=== PATIENT | male | born 1955 | race Caucasian/White ===

== ENCOUNTER → 2017-02-04 | Day surgery (SDC) | payer MEDICARE, OTHER ==
[2017-02-03 16:05] VITALS: BMI 33.0
[~2017-02-04] MED LIST: Lidocaine 1% PF 5 ML VIAL ONE; PHENYLEPHRINE-NS 100 MCG/ML 10 ML SYRINGE ONE
--- NOTE | 2017-02-04 16:11 | OP ---
PREOPERATIVE DIAGNOSES: 1. History of varices in esophagus prior bleeding. Last endoscopy, 2013. 2. Cirrhosis secondary to nonalcoholic steatohepatitis. 3. Progressive ascites. 4. New development of some pulmonary fibrosis. POSTOPERATIVE DIAGNOSES: 1. No esophageal varices. 2. Retained gastric contents in the stomach consistent with gastroparesis. 3. Ulcers in the esophagus distal with no evidence of varices. 4. The stomach could not be really fully evaluated secondary to the amount of retained food in the s tomach. RECOMMENDATIONS: 1. I will check hemoglobin A1c. 2. Start Protonix 40 mg p.o. daily. 3. Small frequent meals with low residue. 4. Follow up in the clinic on 02/12.
--- NOTE | 2017-02-04 23:12 | OP ---
PREOPERATIVE DIAGNOSES: 1. History of variceal bleeding from esophageal varices in the past. 2. Cirrhosis, decompensated. 3. Ascites. 4. Pulmonary hypertension. POSTOPERATIVE DIAGNOSES: 1. Reflux esophagitis, Emmons grade D with erosions, ulcerations, no active bleeding. 2. No evidence of esophageal varices. 3. Retained gastric contents in the stomach consistent with gastroparesis, the stomach could not be fully evaluated off the duodenum. RECOMMENDATIONS: 1. Liquid diet for 24-48 hours. 2. Small frequent meals. 3. Omeprazole 40 mg p.o. daily. 4. Follow up in clinic on 02/12/2017 is scheduled. ANESTHESIA: TIVA. PROCEDURE IN DETAIL: After the patient was informed of the risks, benefits, possible complications o f endoscopy including perforation, bleeding, aspiration, complications from anesthesia, and informed consent was obtained. The patient brought to endoscopy suite where he was sedated in gradual fashion . Once he was comfortable, a bite block was placed in incisural orifice. The endoscope was advanced through the esophagus, stomach and second and third portion of duodenum and slowly removed. There w as good visualization of mucosa. There was ulceration in the esophagus, 3-4 linear ulcers removed fr om the GE junction through the distal third of esophagus. There was no active bleeding. These were white-based. The GE junction was normal. The stomach was entered and found to be normal what could be seen evident. There was retained gastric contents and food, and a full gastric evaluation cannot be performed. The duodenum likewise could not be evaluated. The scope was removed. The patient isrrael erated the procedure well with no complications.
== END ==
LOC: SDC 12:42
PROVIDERS: ATTEND Internal Medicine Gastroenterology
PROC: 0DJ08ZZ Inspection of Upper Intestinal Tract, Via Natural or Artificial Opening Endoscopic (ICD-10-PCS; principal; 2017-02-04)
DX: K21.0 Gastro-esophageal reflux disease with esophagitis (principal); K74.60 Unspecified cirrhosis of liver; K72.90 Hepatic failure, unspecified without coma; E11.9 Type 2 diabetes mellitus without complications; I10 Essential (primary) hypertension; Z91.040 Latex allergy status; Z88.5 Allergy status to narcotic agent; Z88.8 Allergy status to other drugs, medicaments and biological substances; Z98.890 Other specified postprocedural states; Z87.442 Personal history of urinary calculi; Z87.891 Personal history of nicotine dependence
CPT/HCPCS: 36416; J2001

== ENCOUNTER → 2017-02-06 | Day surgery (SDC) | payer MEDICARE, OTHER ==
[2017-02-05 08:21] VITALS: BMI 33.1
[~2017-02-06] MED LIST changes: +FLU VACC QS2017-18 36 mo. & older 0.5 ML SYRINGE IM ONE; -Lidocaine 1% PF 5 ML VIAL ONE; -PHENYLEPHRINE-NS 100 MCG/ML 10 ML SYRINGE ONE
[2017-02-06 11:49] LABS: ALT (SGPT) 18 U/L (8-55); AST (SGOT) 27 U/L (5-34); Alkaline Phosphatase 130 U/L (40-150); Anion Gap 9 mmol/L (10-20); BUN (Urea Nitrogen) 16 mg/dL (8.4-25.7); Bilirubin, Total 4.8 mg/dL (0.2-1.2); Calc. Creatinine Clearance 88 mL/min (70-130); Calcium 8.5 mg/dL (7.8-10.44); Carbon Dioxide 28 mmol/L (22-29); Chloride 99 mmol/L (98-107); Estimated GFR-MDRD 47; Globulin 3.2 g/dL (2.4-3.5); Protein, Total 5.8 g/dL (6.0-8.3)
[2017-02-06 12:13] LABS: BF Reference Range Comment Note:
[2017-02-06 13:09] VITALS: BP 101/63; TEMP 98.4
--- NOTE | 2017-02-06 13:42 | ULT ---
ULTRASOUND GUIDED PARACENTESISS: Date: 02/06/17 HISTORY: Ascites. COMPARISON: 02/03/14. FINDINGS: Technically successful ultrasound guided paracentesis. A total of 6 liters of yellow-colored ascites was aspirated. Patient tolerated the procedure well. No immediate or postprocedure complications. Postprocedure images demonstrate significant ascites still present. TECHNIQUE: Consent obtained to perform an ultrasound guided paracentesis. Patient's abdomen was evaluated. Right lower quadrant was deemed appropriate. Skin was prepped and draped in the sterile fashion. 1% lidoca ine, buffered with sodium bicarbonate, was used for local anesthesia. Under ultrasound guidance, a 5 [place] 7.0 cm Yueh catheter was advanced into the peritoneal space. Via vacuum bottles, a total of 6 liters of ascites was removed. There was still evidence of significant ascites present. However, the patient has not had a paracentesis in over 2 years and therefore additional ascites was not removed a t this time. The patient tolerated the procedure well. No immediate or postprocedural complication. IMPRESSION: Technically successful ultrasound guided paracentesis. POS: [facility]
[2017-02-06 14:26] LABS: BF Color Yellow; BF WBC/Nonhematics Ct. - Manua 17 /cumm
[2017-02-06 14:50] LABS: Number Cells Counted-Fluids 100
== END ==
LOC: ULT 09:16
PROVIDERS: ATTEND Internal Medicine Gastroenterology
PROC: 0W9G3ZZ Drainage of Peritoneal Cavity, Percutaneous Approach (ICD-10-PCS; principal; 2017-02-06)
PROC: BW40ZZZ Ultrasonography of Abdomen (ICD-10-PCS; 2017-02-06)
DX: K74.60 Unspecified cirrhosis of liver (principal); K75.81 Nonalcoholic steatohepatitis (NASH); R18.8 Other ascites; E11.9 Type 2 diabetes mellitus without complications; I10 Essential (primary) hypertension; Z79.2 Long term (current) use of antibiotics; Z79.4 Long term (current) use of insulin; Z79.899 Other long term (current) drug therapy; Z88.5 Allergy status to narcotic agent; Z91.040 Latex allergy status; Z90.49 Acquired absence of other specified parts of digestive tract; Z98.890 Other specified postprocedural states; Z87.442 Personal history of urinary calculi; Z87.891 Personal history of nicotine dependence
CPT/HCPCS: 36415; 49083; 80053; 82105; 85060; 89051